=== PATIENT | male | born 1960 | race Caucasian/White ===

== ENCOUNTER 2017-09-02 13:09 | Emergency (ER) | payer SELFPAY ==
[~2017-09-02] VITALS: Ht 182.9 cm; Wt 72.0 kg
[~2017-09-02 13:09] MED LIST: NEXI20CA PO
[2017-09-02 13:14] VITALS: BP 138/79; PULSE 86; RESP 16; TEMP 97.7; O2SAT 98
[2017-09-02] MEDS ORDERED: SODIUM CHLOR 0.9% 1000 ML INJ 1,000 ML IV ONE (13:30)
[2017-09-02] MEDS ORDERED: NEXI20CA PO (13:31)
--- NOTE | 2017-09-02 13:31 | PD ---
HPI Chief Complaint: Headache Time Seen by Provider: 13:17 Travel History International Travel<30 days: No Contact w/Intl Traveler<30days: No Traveled to known affect area: No History of Present Illness HPI The patient is a 57 year-old male who presents to the emergency department for muscle cramping and dehydration. The patient states he had an upper respiratory infection in July, was treated with Zithromax. The patient states he completed the antibiotics and was feeling better. However, last week he started to develop some intermittent muscle cramping, headaches, dark-colored urine, and felt dehydrated. The patient states he called his physician who recommended that he drink Gatorade. The patient started drinking Gatorade in his urine color did improve, lightened, however, he continues to have intermittent cramping of the forearms as well as mild ache in the joints. The patient does state he goes to the gym on a routine basis, last one to the gym on . He denies any known history of rhabdomyolysis. He also complains of intermittent abdominal cramping and gurgling, however, denies any vomiting, diarrhea, or change in appetite. He denies any associated fever, chills, or sweats. Symptoms are mild without any known alleviating or exacerbating factors. PFSH Past Medical History Asthma: Yes Heart Rhythm Problems: No Cardiac Catheterization: No Cardiovascular Problems: No High Cholesterol: No Congestive Heart Failure: No Diabetes: No Diminished Hearing: No GERD: Yes Respiratory: Yes (ASTHMA) Immunizations Current: Yes Past Surgical History Coronary Artery Bypass Graft: No Social History Alcohol Use: No Tobacco Use: No Substance Use: No Allergies-Medications (Allergen,Severity, Reaction): Coded Allergies: famotidine (Unverified Allergy, Severe, 09/02/17) ranitidine (Unverified Allergy, Severe, TIGHTNESS OF THROAT, 09/02/17) levofloxacin (Unverified Allergy, Intermediate, dry throat and hard to breathe, 09/02/17) penicillin G (Unverified Allergy, Unknown, 09/02/17) Reported Meds & Prescriptions Reported Meds & Active Scripts Active Reported Nexium (Esomeprazole DR) 20 Mg Capdr 20 Mg PO DAILY Review of Systems Except as stated in HPI: all other systems reviewed are Neg General / Constitutional: No: Fever, Chills HENT: Positive: Headaches, Lightheadedness Cardiovascular: No: Chest Pain or Discomfort Respiratory: No: Shortness of Breath Gastrointestinal: Positive: Nausea, Indigestion, No: Vomiting, Diarrhea, Abdominal Pain, Loss of Appetite Genitourinary: No: Dysuria, Decreased Urinary Output Musculoskeletal: Positive: Myalgias, Arthralgias, Cramping, No: Weakness Neurologic: No: Dizziness Physical Exam Narrative GENERAL: Awake, alert, pleasant 57-year-old male who appears his stated age and is in no acute respiratory distress. SKIN: Focused skin assessment warm/dry. HEAD: Atraumatic. Normocephalic. EYES: Pupils equal and round. No scleral icterus. No injection or drainage. ENT: No nasal bleeding or discharge. Slightly dry mucous membranes. NECK: Trachea midline. No JVD. CARDIOVASCULAR: Regular rate and rhythm. No murmur appreciated. RESPIRATORY: No accessory muscle use. Clear to auscultation. Breath sounds equal bilaterally. GASTROINTESTINAL: Abdomen soft, non-tender, nondistended. No rebound tenderness. MUSCULOSKELETAL: No obvious deformities. No clubbing. No cyanosis. No edema. Positive radial and dorsalis pedal pulses bilateral. NEUROLOGICAL: Awake and alert. No obvious cranial nerve deficits. Motor grossly within normal limits. Normal speech. Nonfocal. PSYCHIATRIC: Appropriate mood and affect; insight and judgment normal. Data Data Last Documented VS Vital Signs Date Time Temp Pulse Resp B/P (MAP) Pulse Ox O2 Delivery O2 Flow Rate FiO2 09/02/17 13:14 97.7 86 16 138/79 (98) 98 Orders Orders Complete Blood Count With Diff (09/02/17 13:25) Comprehensive Metabolic Panel (09/02/17 13:25) Magnesium (Mg) (09/02/17 13:25) Creatine Kinase (Cpk) (09/02/17 13:25) Sodium Chlor 0.9% 1000 Ml Inj (Ns 1000 M (09/02/17 13:30) Labs Laboratory Tests Test 09/02/17 13:40 White Blood Count 4.2 TH/MM3 Red Blood Count 4.53 MIL/MM3 Hemoglobin 13.0 GM/DL Hematocrit 40.2 % Mean Corpuscular Volume 88.6 FL Mean Corpuscular Hemoglobin 28.7 PG Mean Corpuscular Hemoglobin Concent 32.3 % Red Cell Distribution Width 12.5 % Platelet Count 300 TH/MM3 Mean Platelet Volume 7.3 FL Neutrophils (%) (Auto) 65.4 % Lymphocytes (%) (Auto) 26.1 % Monocytes (%) (Auto) 6.0 % Eosinophils (%) (Auto) 1.5 % Basophils (%) (Auto) 1.0 % Neutrophils # (Auto) 2.7 TH/MM3 Lymphocytes # (Auto) 1.1 TH/MM3 Monocytes # (Auto) 0.3 TH/MM3 Eosinophils # (Auto) 0.1 TH/MM3 Basophils # (Auto) 0.0 TH/MM3 CBC Comment DIFF FINAL Differential Comment Blood Urea Nitrogen 7 MG/DL Creatinine 0.97 MG/DL Random Glucose 109 MG/DL Total Protein 7.1 GM/DL Albumin 4.2 GM/DL Calcium Level 8.6 MG/DL Magnesium Level 2.2 MG/DL Alkaline Phosphatase 57 U/L Aspartate Amino Transf (AST/SGOT) 16 U/L Alanine Aminotransferase (ALT/SGPT) 22 U/L Total Bilirubin 0.6 MG/DL Sodium Level 134 MEQ/L Potassium Level 3.9 MEQ/L Chloride Level 98 MEQ/L Carbon Dioxide Level 30.3 MEQ/L Anion Gap 6 MEQ/L Estimat Glomerular Filtration Rate 80 ML/MIN Total Creatine Kinase 267 U/L MDM Medical Decision Making Medical Screen Exam Complete: Yes Emergency Medical Condition: Yes Medical Record Reviewed: Yes Interpretation(s) Laboratory Tests Test 09/02/17 13:40 White Blood Count 4.2 TH/MM3 Red Blood Count 4.53 MIL/MM3 Hemoglobin 13.0 GM/DL Hematocrit 40.2 % Mean Corpuscular Volume 88.6 FL Mean Corpuscular Hemoglobin 28.7 PG Mean Corpuscular Hemoglobin Concent 32.3 % Red Cell Distribution Width 12.5 % Platelet Count 300 TH/MM3 Mean Platelet Volume 7.3 FL Neutrophils (%) (Auto) 65.4 % Lymphocytes (%) (Auto) 26.1 % Monocytes (%) (Auto) 6.0 % Eosinophils (%) (Auto) 1.5 % Basophils (%) (Auto) 1.0 % Neutrophils # (Auto) 2.7 TH/MM3 Lymphocytes # (Auto) 1.1 TH/MM3 Monocytes # (Auto) 0.3 TH/MM3 Eosinophils # (Auto) 0.1 TH/MM3 Basophils # (Auto) 0.0 TH/MM3 CBC Comment DIFF FINAL Differential Comment Blood Urea Nitrogen 7 MG/DL Creatinine 0.97 MG/DL Random Glucose 109 MG/DL Total Protein 7.1 GM/DL Albumin 4.2 GM/DL Calcium Level 8.6 MG/DL Magnesium Level 2.2 MG/DL Alkaline Phosphatase 57 U/L Aspartate Amino Transf (AST/SGOT) 16 U/L Alanine Aminotransferase (ALT/SGPT) 22 U/L Total Bilirubin 0.6 MG/DL Sodium Level 134 MEQ/L Potassium Level 3.9 MEQ/L Chloride Level 98 MEQ/L Carbon Dioxide Level 30.3 MEQ/L Anion Gap 6 MEQ/L Estimat Glomerular Filtration Rate 80 ML/MIN Total Creatine Kinase 267 U/L Differential Diagnosis Differential diagnosis includes electrolyte abnormality, hypokalemia, hypocalcemia, dehydration, rhabdomyolysis, acute kidney injury, viral syndrome. Narrative Course IV was established, labs are drawn and sent, and the patient was placed on cardiac telemetry monitoring and continuous pulse oximetry monitoring. The patient was administered 1 L of IV fluids and electrolytes were sent to lab. CPK was sent to lab to rule out underlying rhabdomyolysis. The patient's BUN, creatinine, CPK, and electrolytes are unremarkable. The patient does complain of occasional post nasal drip and a dry nonproductive cough, has been on Claritin in the past. He is advised to take Claritin daily to see if this helps improve his symptoms. The patient will be provided a copy of his labs at discharge, is advised to follow-up with his primary physician and return if symptoms worsen or progress. Diagnosis Primary Impression: Cramps, muscle, general Patient Instructions: General Instructions Additional Instructions: Follow-up with your primary physician. Please provide a patient a copy of his labs at discharge. Plenty of fluids to stay hydrated. Return if symptoms worsen or progress. Consider taking Claritin daily for postnasal drip. Disposition: 01 DISCHARGE HOME Condition: Stable Devyn Travis MD Sep 02, 2017 13:31
[2017-09-02 13:58] LABS: AUTOMATED NEUTROPHIL # 2.7 TH/MM3 (1.8-7.7); EOSINOPHIL # 0.1 TH/MM3 (0-0.4); EOSINOPHIL % 1.5 % (0.0-4.0); HEMATOCRIT 40.2 % (39.0-51.0); HEMO FLAGS DIFF FINAL; LYMPH % 26.1 % (9.0-44.0); LYMPHOCYTE # 1.1 TH/MM3 (1.0-4.8); MEAN CELL VOLUME 88.6 FL (80.0-100.0); MEAN CORPUSCULAR HEMOGLOBIN 28.7 PG (27.0-34.0); MEAN CORPUSCULAR HGB CONC 32.3 % (32.0-36.0); NEUT % 65.4 % (16.0-70.0); PLATELET COUNT 300 TH/MM3 (150-450); RED BLOOD COUNT 4.53 MIL/MM3 (4.50-5.90); RED CELL DISTRIBUTION WIDTH 12.5 % (11.6-17.2); WHITE BLOOD COUNT 4.2 TH/MM3 (4.0-11.0)
[2017-09-02 14:06] LABS: CHLORIDE 98 MEQ/L (98-107); POTASSIUM 3.9 MEQ/L (3.5-5.1); SODIUM (NA) 134 MEQ/L (136-145)
[2017-09-02 14:11] LABS: ANION GAP 6 MEQ/L (5-15); BICARBONATE 30.3 MEQ/L (21.0-32.0); BLOOD UREA NITROGEN 7 MG/DL (7-18); MAGNESIUM 2.2 MG/DL (1.5-2.5)
[2017-09-02 14:13] LABS: ALT (GPT) 22 U/L (12-78)
[2017-09-02 14:14] LABS: AST (GOT) 16 U/L (15-37); GLOMERULAR FILTRATION RATE 80 ML/MIN (>89)
[2017-09-02 14:15] LABS: TOTAL BILIRUBIN ADULT 0.6 MG/DL (0.2-1.0)
[2017-09-02 14:16] LABS: ALKALINE PHOSPHATASE 57 U/L (45-117); CREATINE KINASE 267 U/L (39-308)
[2017-09-02 14:38] VITALS: BP 135/73; PULSE 65; RESP 18; O2SAT 100
== END 2017-09-02 14:59 | disposition home or self-care (01) ==
LOC: PHED 13:09
DX: R25.2 Cramp and spasm (principal); J45.909 Unspecified asthma, uncomplicated; K21.9 Gastro-esophageal reflux disease without esophagitis; Z88.0 Allergy status to penicillin; Z79.899 Other long term (current) drug therapy
CPT/HCPCS: 80053; 82550; 83735; 85025; 96360; 99284; J7030

== ENCOUNTER 2017-09-08 19:20 | Emergency (ER) | payer SELFPAY ==
[~2017-09-08] VITALS: Ht 180.3 cm; Wt 72.6 kg
[2017-09-08 19:28] VITALS: BP 139/82; PULSE 74; RESP 20; TEMP 99.2; O2SAT 100
[2017-09-08] MEDS ORDERED: SODIUM CHLOR 0.9% 1000 ML INJ 1,000 ML IV SCH (20:17)
--- NOTE | 2017-09-08 20:22 | PD ---
HPI Chief Complaint: Abdominal Pain Time Seen by Provider: 20:17 Travel History International Travel<30 days: No Contact w/Intl Traveler<30days: No Traveled to known affect area: No History of Present Illness HPI The patient is a 57-year-old male that complains of right lower quadrant abdominal pain beginning around 6:30 PM. He has slight nausea without vomiting. He denies any fever or diarrhea. He was seen last Sunday in the emergency department for generalized myalgias and at that time he said he had some slight abdominal discomfort. He does have a history of GERD. The pain does not radiate and is a 5/10, dull type pain. PFSH Past Medical History Asthma: Yes Heart Rhythm Problems: No Cardiac Catheterization: No Cardiovascular Problems: No High Cholesterol: No Congestive Heart Failure: No Diabetes: No Diminished Hearing: No GERD: Yes Heparin Induced Thrombocytopen: No Hypertension: No Respiratory: Yes Immunizations Current: Yes Tetanus Vaccination: Unknown Influenza Vaccination: No Past Surgical History Coronary Artery Bypass Graft: No Family History Family Myocardial Infarction: No Social History Alcohol Use: No Tobacco Use: No Substance Use: No Allergies-Medications (Allergen,Severity, Reaction): Coded Allergies: famotidine (Unverified Allergy, Severe, 09/08/17) ranitidine (Unverified Allergy, Severe, TIGHTNESS OF THROAT, 09/08/17) levofloxacin (Unverified Allergy, Intermediate, dry throat and hard to breathe, 09/08/17) penicillin G (Unverified Allergy, Unknown, 09/08/17) Reported Meds & Prescriptions Reported Meds & Active Scripts Active No Active Prescriptions or Reported Medications Review of Systems Except as stated in HPI: all other systems reviewed are Neg Physical Exam Narrative GENERAL: The patient is alert, oriented 3 and slight apparent distress with his abdominal discomfort. His vital signs are normal. SKIN: Focused skin assessment warm/dry. HEAD: Atraumatic. Normocephalic. EYES: Pupils equal and round. No scleral icterus. No injection or drainage. ENT: No nasal bleeding or discharge. Mucous membranes pink and moist. NECK: Trachea midline. No JVD. CARDIOVASCULAR: Regular rate and rhythm. No murmur appreciated. RESPIRATORY: No accessory muscle use. Clear to auscultation. Breath sounds equal bilaterally. GASTROINTESTINAL: Abdomen soft, with slight tenderness to direct palpation in the right lower quadrant, nondistended. Hepatic and splenic margins not palpable. No guarding or rebound is present. MUSCULOSKELETAL: No obvious deformities. No clubbing. No cyanosis. No edema. NEUROLOGICAL: Awake and alert. No obvious cranial nerve deficits. Motor grossly within normal limits. Normal speech. PSYCHIATRIC: Appropriate mood and affect; insight and judgment normal. Data Data Last Documented VS Vital Signs Date Time Temp Pulse Resp B/P (MAP) Pulse Ox O2 Delivery O2 Flow Rate FiO2 09/08/17 20:40 74 18 144/78 (100) 98 Room Air 09/08/17 19:28 99.2 Orders Orders Complete Blood Count With Diff (09/08/17 20:17) Comprehensive Metabolic Panel (09/08/17 20:17) Lipase (09/08/17 20:17) Urinalysis - C+S If Indicated (09/08/17 20:17) Ct Abd/Pel W Iv Contrast(Rout) (09/08/17 20:17) Iv Access Insert/Monitor (09/08/17 20:17) Ecg Monitoring (09/08/17 20:17) Oximetry (09/08/17 20:17) Ondansetron Inj (Zofran Inj) (09/08/17 20:30) Sodium Chlor 0.9% 1000 Ml Inj (Ns 1000 M (09/08/17 20:17) Sodium Chloride 0.9% Flush (Ns Flush) (09/08/17 20:30) Iohexol 350 Inj (Omnipaque 350 Inj) (09/08/17 20:58) Labs Laboratory Tests Test 09/08/17 20:37 White Blood Count 6.4 TH/MM3 Red Blood Count 4.69 MIL/MM3 Hemoglobin 13.6 GM/DL Hematocrit 40.5 % Mean Corpuscular Volume 86.5 FL Mean Corpuscular Hemoglobin 29.0 PG Mean Corpuscular Hemoglobin Concent 33.6 % Red Cell Distribution Width 12.3 % Platelet Count 292 TH/MM3 Mean Platelet Volume 7.7 FL Neutrophils (%) (Auto) 59.2 % Lymphocytes (%) (Auto) 32.5 % Monocytes (%) (Auto) 6.6 % Eosinophils (%) (Auto) 1.0 % Basophils (%) (Auto) 0.7 % Neutrophils # (Auto) 3.8 TH/MM3 Lymphocytes # (Auto) 2.1 TH/MM3 Monocytes # (Auto) 0.4 TH/MM3 Eosinophils # (Auto) 0.1 TH/MM3 Basophils # (Auto) 0.0 TH/MM3 CBC Comment DIFF FINAL Differential Comment Urine Color YELLOW Urine Turbidity CLEAR Urine pH 7.5 Urine Specific [place] 1.008 Urine Protein NEG mg/dL Urine Glucose (UA) NEG mg/dL Urine Ketones NEG mg/dL Urine Occult Blood NEG Urine Nitrite NEG Urine Bilirubin NEG Urine Leukocyte Esterase NEG Urine RBC 0-2 /hpf Urine WBC 0-2 /hpf Urine Squamous Epithelial Cells 0-5 /hpf Urine Bacteria NONE /hpf Microscopic Urinalysis Comment CULT NOT INDICATED Blood Urea Nitrogen 13 MG/DL Creatinine 1.00 MG/DL Random Glucose 96 MG/DL Total Protein 7.6 GM/DL Albumin 4.4 GM/DL Calcium Level 9.1 MG/DL Alkaline Phosphatase 60 U/L Aspartate Amino Transf (AST/SGOT) 19 U/L Alanine Aminotransferase (ALT/SGPT) 25 U/L Total Bilirubin 0.4 MG/DL Sodium Level 135 MEQ/L Potassium Level 3.8 MEQ/L Chloride Level 99 MEQ/L Carbon Dioxide Level 29.5 MEQ/L Anion Gap 7 MEQ/L Estimat Glomerular Filtration Rate 78 ML/MIN Lipase 258 U/L MDM Medical Decision Making Medical Screen Exam Complete: Yes Emergency Medical Condition: Yes Medical Record Reviewed: Yes Differential Diagnosis Acute appendicitis, gastroenteritis, colitis, right sided diverticulitis, viral syndrome Narrative Course The patient likely has a viral syndrome. There is no use of appendicitis either suggested by the blood work or CAT scan. Clinically, his abdomen is completely soft with only minimal tenderness in the right lower quadrant. This could be an early appendicitis. At this time we should try clear liquids, Zofran and follow-up with his primary care physician. Additional Instructions: Return to the emergency department if the right lower quadrant pain gets worse. Otherwise, follow up with her primary care physician. Med/Other Pt SpecificInfo: Prescription(s) given Scripts Ondansetron (Zofran) 4 Mg Tab 4 MG PO Q6HR Y for NAUSEA OR VOMITING, #20 TAB 0 Refills Prov: Roman Cole MD 09/08/17 Disposition: 01 DISCHARGE HOME Condition: Stable Roman Cole MD Sep 08, 2017 20:22
[2017-09-08] MEDS ORDERED: ONDANSETRON HCL 4 MG/2 ML VIAL IVP ONE (20:30)
[2017-09-08] MEDS ORDERED: SODIUM CHLORIDE 0.9% FLUSH 10 ML FLUSH IV FLUSH PRN (20:30)
[2017-09-08 20:39] VITALS: RESP 18; O2SAT 98
[2017-09-08 20:40] VITALS: BP 144/78; PULSE 74; RESP 18; O2SAT 98
[2017-09-08 20:44] LABS: BLOOD, URINE NEG (NEG); GLUCOSE,URINE NEG (NEG); KETONE, URINE NEG (NEG); NITRITE,URINE NEG (NEG); PH, URINE 7.5 (5.0-8.5)
[2017-09-08 20:45] LABS: AUTOMATED NEUTROPHIL # 3.8 TH/MM3 (1.8-7.7); BASOPHIL % 0.7 % (0.0-2.0); EOSINOPHIL # 0.1 TH/MM3 (0-0.4); HEMATOCRIT 40.5 % (39.0-51.0); HEMO FLAGS DIFF FINAL; LYMPH % 32.5 % (9.0-44.0); LYMPHOCYTE # 2.1 TH/MM3 (1.0-4.8); MEAN CELL VOLUME 86.5 FL (80.0-100.0); MEAN CORPUSCULAR HGB CONC 33.6 % (32.0-36.0); MONO % 6.6 % (0.0-8.0); NEUT % 59.2 % (16.0-70.0); PLATELET COUNT 292 TH/MM3 (150-450); RED BLOOD COUNT 4.69 MIL/MM3 (4.50-5.90); RED CELL DISTRIBUTION WIDTH 12.3 % (11.6-17.2); WHITE BLOOD COUNT 6.4 TH/MM3 (4.0-11.0)
[2017-09-08 20:48] LABS: COMMENT (UR) CULT NOT INDICATED; CULTURE IF INDICATED CULT NOT INDICATED; RBC, URINE 0-2 /hpf (0-3); SQUAMOUS EPITHELIAL CELL URINE 0-5 /hpf (0-5); URINE COLOR YELLOW (YELLW/STRAW); WBC, URINE 0-2 /hpf (0-5)
[2017-09-08 20:52] LABS: CHLORIDE 99 MEQ/L (98-107); POTASSIUM 3.8 MEQ/L (3.5-5.1); SODIUM (NA) 135 MEQ/L (136-145)
[2017-09-08 20:56] LABS: ANION GAP 7 MEQ/L (5-15); BICARBONATE 29.5 MEQ/L (21.0-32.0)
[2017-09-08 20:57] LABS: BLOOD UREA NITROGEN 13 MG/DL (7-18)
[2017-09-08] MEDS ORDERED: IOHEXOL 350 MG/ML 10 ML VIAL (for RAD DIAG) IVCONTRAST ONE (20:58)
[2017-09-08 20:59] LABS: ALT (GPT) 25 U/L (12-78); AST (GOT) 19 U/L (15-37); GLOMERULAR FILTRATION RATE 78 ML/MIN (>89)
[2017-09-08 21:01] LABS: TOTAL BILIRUBIN ADULT 0.4 MG/DL (0.2-1.0)
[2017-09-08 21:02] LABS: ALKALINE PHOSPHATASE 60 U/L (45-117)
--- NOTE | 2017-09-08 21:20 | RADRPT ---
EXAM DATE/TIME: 09/08/2017 20:51 [facility] COMPARISON: No previous studies available for comparison. INDICATIONS : Lower abdominal pain. IV CONTRAST: 90 cc Omnipaque 350 (iohexol) IV ORAL CONTRAST: No oral contrast ingested. RADIATION DOSE: 6.54 CTDIvol (mGy) MEDICAL HISTORY : Gastroesophageal reflux disease. SURGICAL HISTORY : None. ENCOUNTER: Initial ACUITY: 1 day PAIN SCALE: 5/10 LOCATION: lower quadrant TECHNIQUE: Volumetric scanning of the abdomen and pelvis was performed. Using automated exposure control and ad justment of the mA and/or kV according to patient size, radiation dose was kept as low as reasonably achievable to obtain optimal diagnostic quality images. DICOM format image data is available electro nically for review and comparison. FINDINGS: Lung bases are clear. No acute findings in the liver, spleen, adrenals, kidneys or pancreas. No free fluid. No bowel obstruction. No adenopathy. Mild constipation. No acute bony abnormalities. CONCLUSION: 1. No acute findings within the abdomen and pelvis. Mc Castle MD on September 08, 2017 at 21:15 Board Certified Radiologist. This report was verified electronically.
[2017-09-08] MEDS ORDERED: ZOFR4TAB PO (21:34)
[2017-09-08 22:17] VITALS: BP 140/74; PULSE 72; RESP 18; O2SAT 99
== END 2017-09-08 22:33 | disposition home or self-care (01) ==
LOC: PHED 19:20
DX: R10.31 Right lower quadrant pain (principal); R11.0 Nausea; Z87.19 Personal history of other diseases of the digestive system; Z87.09 Personal history of other diseases of the respiratory system
CPT/HCPCS: 74177; 80053; 81001; 83690; 85025; 96361; 96374; 99285; J2405; J7030; Q9967